=== PATIENT | male | born 1960 | race Caucasian/White ===

== ENCOUNTER 2020-10-24 07:57 | Day surgery (SDC) | payer SELFPAY ==
[~2020-10-24] VITALS: Ht 175.3 cm; Wt 77.1 kg
[~2020-10-24 07:57] MED LIST: CHOL10002 PO; CYCL10 PO; HYDACE10B PO; LISI20 PO; LORA1 PO; RANI150 PO
[2020-10-24] MEDS ORDERED: AMIT75 (09:03)
[2020-10-24] MEDS ORDERED: Acetaminophen325 M1 (09:03)
[2020-10-24] MEDS ORDERED: CYCL10 (09:04)
[2020-10-24] MEDS ORDERED: CLON1 (09:04)
[2020-10-24] MEDS ORDERED: Norco 10-325 T1 EACH (09:04)
[2020-10-24] MEDS ORDERED: FERSU300 (09:04)
[2020-10-24] MEDS ORDERED: ATORVASTATIN CA10 M1 (09:04)
[2020-10-24] MEDS ORDERED: METF500 (09:05)
[2020-10-24] MEDS ORDERED: Lovastatin20 MG (09:05)
[2020-10-24] MEDS ORDERED: BASAGLAR K100 UNIT/1 (09:05)
== END 2020-10-24 12:15 | disposition home or self-care (01) ==
LOC: ORSCSDS 07:57
PROVIDERS: Internal Medicine Gastroenterology
PROC: 0DB58ZX Excision of Esophagus, Via Natural or Artificial Opening Endoscopic, Diagnostic (ICD-10-PCS; principal; 2020-10-24 10:45)
PROC: 0DBN8ZX Excision of Sigmoid Colon, Via Natural or Artificial Opening Endoscopic, Diagnostic (ICD-10-PCS; principal; 2020-10-24 10:45)
PROC: 0DB98ZX Excision of Duodenum, Via Natural or Artificial Opening Endoscopic, Diagnostic (ICD-10-PCS; principal; 2020-10-24 10:45)
PROC: 0DB68ZX Excision of Stomach, Via Natural or Artificial Opening Endoscopic, Diagnostic (ICD-10-PCS; principal; 2020-10-24 10:45)
DX: D50.9 Iron deficiency anemia, unspecified (principal); K63.5 Polyp of colon; K57.30 Diverticulosis of large intestine without perforation or abscess without bleeding; K22.70 Barrett's esophagus without dysplasia; K44.9 Diaphragmatic hernia without obstruction or gangrene; E11.9 Type 2 diabetes mellitus without complications; I10 Essential (primary) hypertension; Z80.0 Family history of malignant neoplasm of digestive organs; Z79.4 Long term (current) use of insulin; Z79.899 Other long term (current) drug therapy; Z87.891 Personal history of nicotine dependence
CPT/HCPCS: 82947; 87081; 88305; 88312; J2704; J7120